=== PATIENT | male | born 1995 | race Caucasian/White ===

== ENCOUNTER 2025-02-23 14:49 | Emergency (ER) | payer OTHER, SELFPAY ==
[2025-02-23 14:51] VITALS: BP 143/90
--- NOTE | 2025-02-23 15:19 | ED.GENMED ---
History of Present Illness
General
Chief Complaint: Musculo-Skeletal Complaint
Source: patient
Time Seen by Provider: 02/23/25 15:12
History of Present Illness
History of Present Illness:
29-year-old male with no significant past medical history presenting to the emergency department for evaluation of left lower extremity erythema, edema and pain noting symptoms started over the last 24 or so hours, recently returned home from [facility]
[place] this morning. Patient with some ice over the area and went to sleep but upon awakening noticed worsening erythema and edema prompting family to bring him to the ER for further evaluation. Patient denies any fevers, chills, rigors or any other
concerns. He notes that he may have been bitten by some bugs while on vacation but does not recall any injury, puncture wounds or any other concerns. No history of similar.
Past History
Past History
ED Past Medical History: Other
ED Past Surgical History: Appendectomy and Tonsilectomy
Social History
Tobacco: Non-smoker
Alcohol: Occasional
Drug: None
Personal: Single
Living: with family
Employment: Employed
Review of Systems
Review of Systems
All Other Systems: ROS reviewed and negative except as documented in HPI and ROS
Phy Exam
Physical Exam
Physical Exam:
GENERAL: Alert , in no apparent distress
EYE: conjunctiva clear
Head: Normocephalic atraumatic
NECK: Supple,
ENT: mmm.
LUNGS: no acute respiratory distress
NEUROLOGICAL: Alert and oriented
SKIN: Warm and dry, moderate erythema and edema over the dorsum of the left foot extending into the ankle and along the distal third of the tib-fib region mainly along the lateral aspect. Hot to the touch and tender. There is small punctate
abrasions noted laterally but no observed foreign body, no active bleeding
MUSCULOSKELETAL: well perfused. Moderate edema to the left lateral
PSYCH: Normal and appropriate interaction.
Scores
Heart Failure Risk
Heart Failure Risk Score: Not Applicable
Heart Score for Chest Pain Patients
STEMI patient?: Not applicable
Withdrawal Assessment of Alcohol
Withdrawal Assessment Completed?: Not applicable
Course
Orders/Labs/Results
Orders:
Orders
02/23/25 15:01
Ankle, left 3 view CR [CR Ankle - Left Min 3 Views ] Urgent
Comment:
Reason For Exam: swelling
02/23/25 15:17
US Periph Venous LOWER Ext LT Urgent
Comment:
Reason For Exam: edema/erythema
02/23/25 15:19
Complete Blood Count/With Diff Urgent
Comprehensive Metabolic Panel Urgent
Creatine Phosphokinase Urgent
Lactic Acid Urgent
Lyme Progressive Urgent
Comment: ADD ON
Ketorolac [Toradol] 30 mg IV NOW STA
02/23/25 15:32
Ampicillin/Sulbactam 3 G [Unasyn] 3 gm 0.9% Sodium Chloride 100 ml [Nss] 100 ml IV NOW
02/23/25 16:17
Add On- LAB Urgent
Tests Added?: Lyme
Abnormal Lab Results
02/23/25
15:19
WBC 11.6 H 10^3/uL
(4.8-10.8)
RBC 4.58 L 10^6/uL
(4.70-6.10)
Absolute Neuts (auto) 9.2 H 10^3/uL
(1.4-6.5)
Absolute Monos (auto) 0.9 H 10^3/uL
(0.1-0.6)
Neutrophils % 79.0 H %
(42.2-75.2)
Lymphocytes % 11.7 L %
(20.5-51.1)
Glucose 140 H mg/dl
(70-99)
Total Bilirubin 1.9 H mg/dl
(0.2-1.3)
02/23/25 15:19
02/23/25 15:19
Vital Signs
Initial and Last Documented VS:
Initial Vital Signs
Temp Pulse Resp BP Pulse Ox
98.5 F 105 16 143/90 96
02/23/25 14:51 02/23/25 14:51 02/23/25 14:51 02/23/25 14:51 02/23/25 14:51
Last Documented Vital Signs
Temp Pulse Resp BP Pulse Ox
98.7 F 86 20 136/81 98
02/23/25 15:20 02/23/25 15:20 02/23/25 15:20 02/23/25 15:20 02/23/25 15:20
MDM/Problems Addressed
Differential Diagnosis Includes:
Cellulitis, DVT, gout, dermatitis
MDM/Problems Addressed:
29-year-old male presenting to the emergency department for evaluation of left lower extremity edema, erythema, pain and increased warmth over the last 24 hours. Symptoms most concerning for cellulitis especially given there are small little breaks
within the skin. Due to recent travel we will obtain an ultrasound to rule out DVT however I am much less suspicious for this. Will treat with a dose of Unasyn here. Disposition pending.
*Radiology
Radiology exam reviewed: preliminary read by ED provider (No fracture or subcutaneous air) and radiology read reviewed
*Pulse Oximetry
Patient hypoxic: no
*Critical Care Note
Total Time (30-74mins, 75-104mins- exclusive of procedures): Not Applicable
Patient Management
Social determinants of health affecting care: Living situation and Strong social support
Escalation/DeEscalation of care consider admission/obs:
Patient's imaging is unremarkable. Reviewed lab work which does show a mild leukocytosis. Will treat with Keflex for suspected cellulitis. Patient aware of return precautions to the emergency department.
ED Attending Note
-
Portions of this chart may have been created with voice recognition software.� Occasional wrong word or��sound alike� substitutions may have occurred due to the inherent limitations of voice recognition software.
Discharge Plan
Departure
Patient Disposition: Home (Routine Discharge)
Date of Disposition: 02/23/25
Time of Disposition: 17:08
Patient with high blood pressure during this ER visit?: Yes
Discharge Problem:
Cellulitis of left lower leg
Instructions: Cellulitis (skin infection) in adults - ED discharge instructions
Prescriptions:
New
cephalexin 500 mg tablet
500 mg PO BID 10 Days Qty: 20 0RF
Referrals:
Lalo Sanon DO [Family Provider] -
Interventions
Interventions:
*Risk Screen - Suicide Last Done: 02/23/25 15:20
*General Assessment Last Done: 02/23/25 15:20
*Neglect/Abuse Screening Last Done: 02/23/25 15:20
*ED- Fall Risk Assessment Last Done: 02/23/25 15:20
*ED COVID-19 Vaccine History Last Done: 02/23/25 15:20
*Nursing Disposition Last Done: 02/23/25 17:34
ED-Musculoskeletal Assessment Last Done: 02/23/25 15:20
Discharge Date and Time
Discharge Date/Time: 02/23/25 17:35
Print Language: STATELESS
[2025-02-23 15:20] VITALS: BP 136/81; BMI 42.5
[2025-02-23 15:30] LABS: % Basophils 0.3 % (0-2); % Eosinophils 1.1 % (0-6); % Immature Granulocytes 0.3 % (0-0.5); % Lymphocytes 11.7 % (20.5-51.1); % Monocytes 7.6 % (1.7-9.3); Absolute Eosinophils 0.1 10^3/uL (0-0.7); Absolute Lymphocytes 1.4 10^3/uL (1.2-3.4); Absolute Monocytes 0.9 10^3/uL (0.1-0.6); Absolute Neutrophils 9.2 10^3/uL (1.4-6.5); Hematocrit 40.6 % (39.0-52.0); Hemoglobin 13.7 g/dL (13.0-18.0); Mean Corp Hgb Conc. 33.7 g/dL (33.0-37.0); Mean Corpuscular Hgb 29.9 pg (27.0-31.0); Mean Corpuscular Volume 88.6 fL (80.0-94.0); Mean Platelet Volume 9.2 fL (7.4-10.4); Nucleated Red Blood Cells % 0 % (-); Platelet Count 300 10^3/uL (130-400); Red Blood Cell Count 4.58 10^6/uL (4.70-6.10); Red Cell Dist. Width 12.4 % (11.5-14.5); White Blood Cell Count 11.6 10^3/uL (4.8-10.8)
[2025-02-23] MEDS: TORADOL 30 MG IV (15:31)
[2025-02-23 15:36] LABS: ALT (SGPT) 22 U/L (0-50); AST (SGOT) 23 U/L (17-59); Albumin 3.9 g/dl (3.5-5.0); Alkaline Phosphatase 81 U/L (38-126); Blood Urea Nitrogen 9 mg/dl (9-20); Calcium 9.5 mg/dl (8.4-10.2); Carbon Dioxide 27 mmol/L (22-30); Chloride 104 mmol/L (98-107); Creatine Phosphokinase 155 U/L (55-170); Estimated Creatinine Clearance > 125 ml/min; Glucose 140 mg/dl (70-99); Sodium 138 mmol/L (135-145); Total Bilirubin 1.9 mg/dl (0.2-1.3); Total Protein 6.8 g/dl (6.3-8.2); eGFR > 60.00
[2025-02-23 15:38] LABS: Lactic Acid 1.6 mmol/L (0.7-2.0)
[2025-02-23] MEDS: UNASYN IV (15:59)
== END 2025-02-23 17:35 | disposition home or self-care (01) ==
LOC: EMR 14:49
PROVIDERS: EMERGENCY PHYSICIAN Emergency Medicine; FAMILY PHYSICIAN Internal Medicine
DX: L03.116 Cellulitis of left lower limb (principal); M79.662 Pain in left lower leg; S90.812A Abrasion, left foot, initial encounter; X58.XXXA Exposure to other specified factors, initial encounter; R03.0 Elevated blood-pressure reading, without diagnosis of hypertension
CPT/HCPCS: 99284; 96365; 73610; 80053; 82550; 83605; 85025; 86618; 93971